=== PATIENT | female | born 1995 | race Hispanic/Latino ===

== ENCOUNTER 2017-01-08 20:30 | Emergency (ER) | payer SELFPAY ==
[2017-01-08 21:23] VITALS: BP 105/79
== END 2017-01-09 00:05 | disposition left against medical advice (07) ==
LOC: ED 20:30
DX: S20.411A Abrasion of right back wall of thorax, initial encounter (principal); X58.XXXA Exposure to other specified factors, initial encounter; Y93.9 Activity, unspecified; Y92.89 Other specified places as the place of occurrence of the external cause; Y99.9 Unspecified external cause status; Z53.21 Procedure and treatment not carried out due to patient leaving prior to being seen by health care provider

== ENCOUNTER 2017-09-05 21:43 | Emergency (ER) | payer SELFPAY ==
[2017-09-05 22:14] LABS: Basophils % (Auto) 0.3 % (0.0-1.8); Eosinophils % (Auto) 0.8 % (0.0-4.3); Mean Corpuscular HGB Conc 34 % (30-34); Mean Corpuscular Hemoglobin 31 pg (28-32); Mean Corpuscular Volume 92 fl (79-97); Platelet Count 333 K/mm3 (140-440); Red Blood Count 4.15 M/mm3 (3.65-5.03); Red Cell Distribution Width 12.4 % (13.2-15.2); White Blood Count 11.1 K/mm3 (4.5-11.0)
[2017-09-05 22:36] LABS: Alanine Aminotransferase 15 units/L (7-56); Albumin 4.2 g/dL (3.9-5); Albumin/Globulin Ratio 1.4 %; Alkaline Phosphatase 42 units/L (35-129); Anion Gap 17 mmol/L; BUN/Creatinine Ratio 13; Blood Urea Nitrogen 10 mg/dL (7-17); Calcium 9.1 mg/dL (8.4-10.2); Carbon Dioxide 26 mmol/L (22-30); Chloride 100.2 mmol/L (98-107); Glucose 86 mg/dL (65-100); Lipase 43 units/L (13-60); Potassium 4.2 mmol/L (3.6-5.0); Sodium 139 mmol/L (137-145); Total Protein 7.1 g/dL (6.3-8.2)
[2017-09-05 23:16] LABS: Bilirubin,Urine NEG (Negative); Blood,Urine NEG (Negative); Ketones,Urine NEG (Negative); Leukocyte Esterase,Urine SM (Negative); Nitrite,Urine NEG (Negative); Protein,Urine <15 mg/dL mg/dL (Negative); Urobilinogen,Urine < 2.0 mg/dL (<2.0)
[2017-09-06 01:55] VITALS: BP 114/72
== END 2017-09-06 02:50 | disposition left against medical advice (07) ==
LOC: ED 21:43
CPT/HCPCS: 36415; 80053; 81001; 83690; 84702; 85025

== ENCOUNTER 2017-09-06 18:42 | Emergency (ER) | payer SELFPAY ==
[2017-09-06 18:52] VITALS: BP 107/78
== END 2017-09-06 22:30 | disposition left against medical advice (07) ==
LOC: ED 18:42
DX: R10.9 Unspecified abdominal pain (principal); Z53.21 Procedure and treatment not carried out due to patient leaving prior to being seen by health care provider

== ENCOUNTER 2021-07-08 22:15 | Emergency (ER) | payer OTHER ==
[2021-07-08] MEDS ORDERED: TETANUS,DIPH,PERTUSS(ACELL) VACCINE 0.5 ML SYRINGE IM ONE (22:22)
[2021-07-08] MEDS ORDERED: SODIUM CHLORIDE 0.9% 1000 ML 1,000 ML IV ONE (22:26)
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
[2021-07-08 22:53] LABS: Hematocrit 34.7 % (30.3-42.9); Hemoglobin 11.7 gm/dl (10.1-14.3); Mean Corpuscular HGB Conc 34 % (30-34); Mean Corpuscular Volume 96 fl (79-97); Platelet Count 340 K/mm3 (140-440); Red Cell Distribution Width 13.8 % (13.2-15.2)
[2021-07-08] MEDS ORDERED: ZIPRASIDONE MESYLATE 20 MG VIAL IM ONE ×2 (23:09→23:10)
[2021-07-08 23:10] LABS: Albumin 4.4 g/dL (3.9-5); Calcium 9.5 mg/dL (8.4-10.2)
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
[2021-07-08] MEDS ORDERED: LORazepam 2 MG/ML VIAL ONE (23:26)
[2021-07-08] MEDS: LORazepam 2 MG/ML VIAL IV ONE (23:29)
[2021-07-09] MEDS ORDERED: TETANUS,DIPH,PERTUSS(ACELL) VACCINE 0.5 ML SYRINGE IM ONE (00:33)
[2021-07-09] MEDS ORDERED: SODIUM CHLORIDE 0.9% 1000 ML 1,000 ML IV ONE (00:33)
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
[2021-07-09] MEDS ORDERED: LIDOCAINE (1%) 10 MG/1 ML VIAL 20 ML MDV INFILTRATI ONE (00:43)
[2021-07-09] MEDS: LORazepam 2 MG/ML VIAL IV ONE (00:51)
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
--- NOTE | 2021-07-09 01:51 | XRay Report ---
XR chest 1V ap INDICATION / CLINICAL INFORMATION: ct placement. COMPARISON: Radiograph from yesterday. FINDINGS: SUPPORT DEVICES: Interval placement of left thoracostomy tube. HEART /PULMONARY VASCULATURE: Unchanged. LUNGS / PLEURA: There is significant improvement in left pneumothorax. No definite pneumothorax remai ns. Patchy airspace opacities within the left lung likely reflecting volume loss. Right lung remains clear. IMPRESSION: Essentially resolved left pneumothorax status post chest tube placement. Signer Name: Melvin Ferreira MD Signed: 07/09/2021 1:46 AM Workstation Name: [id number]
[2021-07-09 02:18] VITALS: BP 80/57
[2021-07-09] MEDS ORDERED: LORazepam 2 MG/ML VIAL IV ONE (02:42)
== END 2021-07-09 03:05 | disposition short-term general hospital (02) ==
LOC: ED 22:15
DX: S02.85XB Fracture of orbit, unspecified, initial encounter for open fracture (principal); S21.119A Laceration without foreign body of unspecified front wall of thorax without penetration into thoracic cavity, initial encounter; S27.0XXA Traumatic pneumothorax, initial encounter; M79.601 Pain in right arm; M54.2 Cervicalgia; R07.89 Other chest pain; R10.84 Generalized abdominal pain; F17.200 Nicotine dependence, unspecified, uncomplicated; F15.90 Other stimulant use, unspecified, uncomplicated; Z72.89 Other problems related to lifestyle; X99.1XXA Assault by knife, initial encounter; Y93.89 Activity, other specified; Y92.89 Other specified places as the place of occurrence of the external cause; Y99.8 Other external cause status
CPT/HCPCS: 32551; 36415; 70450; 70486; 70491; 71045; 71260; 73030; 73060; 73090; 73120; 74177; 80053; 84703; 85027; 86850; 86900; 86901; 90471; 90715; 96361; 96365; 96366; 96372; 96375; 96376; 99291; 99292; J0690; J2060; J3486; J7030; Q9967; 99285

== ENCOUNTER 2022-03-07 18:32 | Emergency (ER) | payer SELFPAY ==
[2022-03-07] MEDS ORDERED: NICOTINE 21 MG/24 HR PATCH TD ONE (20:23)
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
[2022-03-08 02:49] VITALS: BP 110/72
== END 2022-03-08 02:50 | disposition home or self-care (01) ==
LOC: ED 18:32
DX: S91.302A Unspecified open wound, left foot, initial encounter (principal); F17.200 Nicotine dependence, unspecified, uncomplicated; F15.90 Other stimulant use, unspecified, uncomplicated; Z72.89 Other problems related to lifestyle; Z79.899 Other long term (current) drug therapy; X58.XXXA Exposure to other specified factors, initial encounter; Y93.89 Activity, other specified; Y92.89 Other specified places as the place of occurrence of the external cause; Y99.8 Other external cause status
CPT/HCPCS: 99283